=== PATIENT | female | born 1960 | race Caucasian/White ===

== ENCOUNTER 2019-06-13 14:58 | Outpatient (CLI) | payer OTHER, SELFPAY ==
--- NOTE | 2019-06-13 15:20 | XR_ITS ---
WS: [id number] RIGHT HIP HISTORY: DEGENERATIVE JOINT DISEASE, RIGHT HIP, RIGHT HIP PAIN COMPARISON: 09/09/2018 Right hip: No acute fracture or dislocation. Severe narrowing of the hip joint. There is bone upon matilde ne with subchondral sclerosis and osteophytes. Osteophytic ridging around the acetabulum. Mild latera l subluxation of the femoral head. No soft tissue abnormality. XR/XR hip RT 2-3V wo/w pel* [id number] IMPRESSION: 1. No hip fracture. 2. Severe osteoarthritis at the RIGHT hip joint. Mild progression since 019.
== END 2019-06-13 14:59 | disposition home or self-care (01) ==
LOC: RADWPI 15:05
PROVIDERS: Family Provider Electrodiagnostic Medicine; PCP Electrodiagnostic Medicine; Visit Provider Electrodiagnostic Medicine
DX: M16.11 Unilateral primary osteoarthritis, right hip (principal); M25.551 Pain in right hip
CPT/HCPCS: 73502

== ENCOUNTER 2019-07-11 12:53 | Outpatient (CLI) | payer OTHER, SELFPAY ==
--- NOTE | 2019-07-11 13:03 | MR_ITS ---
WS: [id number] MRI LUMBAR SPINE NONCONTRAST HISTORY: DEGENERATIVE DISC DISEASE, BACK PAIN WITH RADICULOPATHY COMPARISON: Lumbar spine 02/09/2019 TECHNIQUE: Sagittal and axial multisequence imaging is submitted. Moderate LEFT convex curvature of the lumbar spine secondary to degenerative spondylitic changes. 2 mm retrolisthesis of C2. Advanced degenerative disc disease and disc space narrowing throughout the lumbar spine. Endplate osteophytes at all levels extend anterior and posterior. Conus terminates normally at L1. L1-L2: Diffuse asymmetric disc bulging and osteophytosis. There is mild to moderate bilateral foramin al narrowing, LEFT greater than RIGHT. L2-L3: Diffuse annular disc bulging and osteophytic ridging. Focal RIGHT foraminal disc protrusion. D isc abuts the RIGHT lateral thecal sac and extends through the foramen. Bilateral facet joint arthrit is. Moderate bilateral foraminal stenosis and RIGHT subarticular recess stenosis due to disc protrusi on. L3-L4: Diffuse annular disc bulging and osteophytic ridging. Central and RIGHT paracentral disc protr usions. Additional smaller LEFT paracentral protrusion. There is mild central with moderate subarticu lar recess and moderate bilateral foraminal stenosis. L4-L5: Diffuse annular disc bulging and osteophytic ridging. Moderate to severe LEFT foraminal stenos is and mild on the RIGHT. Mild central stenosis. L5-S1: Mild disc bulging and facet disease. Fluid in the facet joints bilaterally. No stenosis. Paravertebral soft tissues are normal. MR/MR lumbar spine wo con* [id number] IMPRESSION: 1. Advanced spondylitic changes and LEFT degenerative rotoscoliosis of the lum bar spine. 2. Moderate to severe LEFT foraminal stenosis at L4-5 due to disc and osteophy te disease. 3. Mild to moderate bilateral foraminal stenosis at L1-2. 4. Moderate bilateral foraminal stenosis at L2-3 with RIGHT subarticular reces s stenosis and associated disc protrusion. 5. Mild central and moderate subarticular recess and bilateral foraminal steno sis at L3-4.
== END 2019-07-11 12:54 | disposition home or self-care (01) ==
LOC: RADWPI 12:57
PROVIDERS: Family Provider Electrodiagnostic Medicine; PCP Electrodiagnostic Medicine; Visit Provider Electrodiagnostic Medicine
DX: M51.36 Other intervertebral disc degeneration, lumbar region (principal); M54.16 Radiculopathy, lumbar region; M47.896 Other spondylosis, lumbar region; M48.061 Spinal stenosis, lumbar region without neurogenic claudication; M51.26 Other intervertebral disc displacement, lumbar region
CPT/HCPCS: 72148

== ENCOUNTER 2019-09-20 09:15 | Outpatient (CLI) | payer OTHER, SELFPAY ==
--- NOTE | 2019-09-20 09:27 | MM_ITS ---
WS: [id number] BILATERAL SCREENING DIGITAL MAMMOGRAM WITH CAD HISTORY: SCREENING COMPARISON: 06/11/2018, 05/20/2017 and 02/07/2013 Bilateral CC and MLO views submitted. Computer aided detection analyzed. Breast composition: There are scattered areas of fibroglandular density. No suspicious masses, microc alcifications or architectural distortion. Stable parenchymal pattern. Benign calcifications in each breast. MM/[place] [id number] IMPRESSION: BI-RADS: 2-Benign FOLLOW UP: 1 Year Follow-up
== END 2019-09-20 09:16 | disposition home or self-care (01) ==
LOC: RADSHAW 09:17
PROVIDERS: Family Provider Electrodiagnostic Medicine; PCP Electrodiagnostic Medicine; Visit Provider Electrodiagnostic Medicine
DX: Z12.31 Encounter for screening mammogram for malignant neoplasm of breast (principal)
CPT/HCPCS: 77067

== ENCOUNTER 2021-01-29 09:10 | Outpatient (CLI) | payer OTHER, SELFPAY ==
--- NOTE | 2021-01-29 09:21 | MM_ITS ---
WS: [id number] BILATERAL DIGITAL SCREENING MAMMOGRAPHY WITH CAD CLINICAL INFORMATION: SCREENING HISTORY: Screening mammogram. No current complaints. COMPARISON: September 20, 2019 TECHNIQUE: Bilateral CC and MLO views. FINDINGS: Scattered fibroglandular densities bilaterally. Stable punctate and clustered calcifications. Stable lucent centered calcifications. No suspicious focal mass, asymmetry, calcifications, or architectural distortion. No evidence of malignancy. MM/[place] [id number] IMPRESSION: BI-RADS: 2-Benign FOLLOW UP: 1 Year Follow-up Recommend return to annual screening mammography.
== END 2021-01-29 09:11 | disposition home or self-care (01) ==
LOC: RADSHAW 09:14
PROVIDERS: PCP Electrodiagnostic Medicine; Visit Provider Electrodiagnostic Medicine
DX: Z12.31 Encounter for screening mammogram for malignant neoplasm of breast (principal)
CPT/HCPCS: 77067

== ENCOUNTER 2022-06-09 09:40 | Outpatient (CLI) | payer OTHER, SELFPAY ==
--- NOTE | 2022-06-09 09:51 | MM_ITS ---
WS: [id number] VIEWS: MLO and CC views both breasts. 3D digital tomosynthesis is also included in this exam. Comparison made with prior exam of 04/02/2015, 04/15/2016, 05/20/2017, 09/20/2019, 01/29/2021.. Findings: There was no sign of mass, architectural distortion or suspicious calcification in either breast. Sta ble appearing nodular densities in both breasts.Scattered fibroglandular densities MM/[place] [id number] Impression: BI-RADS: 2-Benign FOLLOW-UP: 1 Year Follow-up This mammogram was also analyzed by the Computer Aided Detection System R2 Imag e Back Strip Machine Operator.
== END 2022-06-09 09:41 | disposition home or self-care (01) ==
LOC: RAD 09:41
PROVIDERS: PCP Electrodiagnostic Medicine; Visit Provider Electrodiagnostic Medicine
DX: Z12.31 Encounter for screening mammogram for malignant neoplasm of breast (principal)
CPT/HCPCS: 77063; 77067

== ENCOUNTER 2023-06-30 09:17 | Outpatient (CLI) | payer OTHER, SELFPAY ==
--- NOTE | 2023-06-30 09:40 | MM_ITS ---
WS: [id number] BILATERAL SCREENING DIGITAL TOMOSYNTHESIS MAMMOGRAM WITH CAD HISTORY: SCREEN COMPARISON: 06/09/2022 and 01/29/2021 Bilateral CC and MLO views with tomosynthesis and synthetic mammography submitted. Computer aided det ection analyzed. Breast composition: There are scattered areas of fibroglandular density. No suspicious masses, microc alcifications or architectural distortion. Benign scattered calcifications in each breast. There is a focal asymmetry in the lateral anterior RIGHT breast which has been stable from multiple prior years . IMPRESSION: MM/[place] [id number] BI-RADS: 2-Benign FOLLOW UP: 1 Year Follow-up
== END 2023-06-30 09:18 | disposition home or self-care (01) ==
LOC: RAD 09:18
PROVIDERS: PCP Electrodiagnostic Medicine; Visit Provider Electrodiagnostic Medicine
DX: Z12.31 Encounter for screening mammogram for malignant neoplasm of breast (principal)
CPT/HCPCS: 77063; 77067

== ENCOUNTER 2024-08-09 13:05 | Outpatient (CLI) | payer OTHER, SELFPAY ==
--- NOTE | 2024-08-09 13:11 | MM_ITS ---
WS: [id number] BILATERAL 3D TOMOSYNTHESIS DIGITAL SCREENING MAMMOGRAPHY WITH CAD CLINICAL INFORMATION: SCREENING HISTORY: Screening mammogram. No current complaints. COMPARISON: 2023 TECHNIQUE: Bilateral CC and MLO views. FINDINGS: Scattered fibroglandular densities bilaterally. No suspicious focal mass, asymmetry, calcifications, or architectural distortion. No evidence of malignancy. Incidental punctate and lucent centered calcifications. Skin calcifications. MM/MM scr tomosynthesis [id number] IMPRESSION: DENSITY: There are scattered areas of fibroglandular density. BI-RADS: 2 - Benign. FOLLOW UP: 1 Year Follow-up Recommend return to annual screening mammography.
== END 2024-08-09 13:06 | disposition home or self-care (01) ==
PROVIDERS: PCP Electrodiagnostic Medicine; Visit Provider Electrodiagnostic Medicine
DX: Z12.31 Encounter for screening mammogram for malignant neoplasm of breast (principal); R92.323 Mammographic fibroglandular density, bilateral breasts; R92.1 Mammographic calcification found on diagnostic imaging of breast
CPT/HCPCS: 77063; 77067